=== PATIENT | female | born 1940 | race Hispanic/Latino ===

== ENCOUNTER 2017-08-21 21:39 | Emergency (ER) | payer MEDICARE | END 2017-08-21 23:16 | disposition home or self-care (01) | LOC: EDH 21:39 | DX: H11.32 Conjunctival hemorrhage, left eye (principal); E11.9 Type 2 diabetes mellitus without complications; E78.5 Hyperlipidemia, unspecified; I10 Essential (primary) hypertension; Z79.4 Long term (current) use of insulin ==

== ENCOUNTER → 2017-12-04 | Outpatient (CLI) | payer MEDICARE ==
[~2017-12-04] MED LIST: REGADENOSON 0.4 MG/5 ML PF SYG IVP SCH
== END | disposition home or self-care (01) ==
LOC: SHCH 07:49
PROVIDERS: ATTEND Internal Medicine Cardiovascular Disease
DX: I10 Essential (primary) hypertension (principal); E78.5 Hyperlipidemia, unspecified; R06.02 Shortness of breath
CPT/HCPCS: 78452; 93017; 96374; A9500 ×2; J2785

== ENCOUNTER 2018-04-14 05:44 | Day surgery (SDC) | payer MEDICARE ==
[~2018-04-14] VITALS: Ht 152.4 cm; Wt 59.7 kg
[2018-04-14] VITALS (9 sets, daily range): BP systolic 75–113; BP diastolic 34–49
[~2018-04-14 05:44] MED LIST changes: -REGADENOSON 0.4 MG/5 ML PF SYG IVP SCH; +SODIUM CHLORIDE 0.9% 1000ML 1,000 ML IV ONE
[2018-04-14] MEDS ORDERED: MECL-111 PO (06:58)
[2018-04-14] MEDS ORDERED: INSU100V12 SQ (06:58)
[2018-04-14] MEDS ORDERED: LISI2.5T2 PO (06:58)
[2018-04-14] MEDS ORDERED: BRIM5DRO OP (06:58)
[2018-04-14] MEDS ORDERED: ESOM40CA54 PO (06:58)
[2018-04-14] MEDS ORDERED: ATOR40TA71 PO (06:58)
[2018-04-14] MEDS ORDERED: METF-444 PO (06:58)
[2018-04-14] MEDS ORDERED: ISOS30TA6 PO (06:58)
[2018-04-14] MEDS ORDERED: ERGO500014 PO (06:58)
[2018-04-14] MEDS ORDERED: PROPOFOL 10 MG/ML 20ML VIAL IV ONE ×2 (07:03)
[2018-04-14 07:42] LABS: BASOPHILS % (AUTO) 0.9 % (0.0-5.0); HEMATOCRIT 29.7 % (36-48); LYMPHOCYTES % (AUTO) 30.9 % (21.0-51.0); MEAN CORPUSCULAR HEMOGLOBIN 28.3 pg (27.0-33.0); MEAN CORPUSCULAR HGB CONC 32.8 g/dL (32.0-36.0); MEAN CORPUSCULAR VOLUME 86.3 fL (79-99); MONOCYTES % (AUTO) 6.4 % (3.0-13.0); NEUTROPHILS % (AUTO) 58.8 % (40.0-77.0); PLATELET COUNT (AUTO) 299 K/uL (130-400); RED BLOOD CELL COUNT(AUTO) 3.44 MIL/uL (4.00-5.50); RED CELL DISTRIBUTION WIDTH 14.7 % (11.0-15.5); WHITE BLOOD COUNT (AUTO) 7.3 K/uL (4.8-10.8)
[2018-04-14 08:06] LABS: CREATININE 0.6 mg/dL (0.5-1.5); POTASSIUM 4.3 mmol/L (3.5-5.1)
[2018-04-14 08:12] LABS: ALBUMIN 2.8 g/dL (3.5-5.0); BILIRUBIN,TOTAL 0.6 mg/dL (0.2-1.0); TOTAL PROTEIN, SERUM 6.6 g/dL (6.0-8.3)
== END 2018-04-14 07:45 | disposition home or self-care (01) ==
LOC: ENDO 05:44 → DAH 06:00 → ENDO 07:45
PROVIDERS: ATTEND Internal Medicine Gastroenterology
DX: K29.50 Unspecified chronic gastritis without bleeding (principal); K83.8 Other specified diseases of biliary tract; K80.50 Calculus of bile duct without cholangitis or cholecystitis without obstruction; K86.9 Disease of pancreas, unspecified; I10 Essential (primary) hypertension; E11.9 Type 2 diabetes mellitus without complications; E78.5 Hyperlipidemia, unspecified; M19.90 Unspecified osteoarthritis, unspecified site; K57.30 Diverticulosis of large intestine without perforation or abscess without bleeding; K21.9 Gastro-esophageal reflux disease without esophagitis; K45.8 Other specified abdominal hernia without obstruction or gangrene; Z79.899 Other long term (current) drug therapy; Z79.84 Long term (current) use of oral hypoglycemic drugs; Z90.710 Acquired absence of both cervix and uterus; Z90.49 Acquired absence of other specified parts of digestive tract; Z90.89 Acquired absence of other organs
CPT/HCPCS: 36415; 43259; 80053; 82948 ×2; 85025; 93005; A4606; J2704 ×2; J7030; 43231

== ENCOUNTER 2018-06-18 09:54 | Day surgery (SDC) | payer MEDICARE ==
[~2018-06-18] VITALS: Ht 152.4 cm; Wt 59.8 kg
[2018-06-18] VITALS (14 sets, daily range): BP systolic 100–175; BP diastolic 48–93
[~2018-06-18 09:54] MED LIST changes: +ATOR40TA71 PO; +BRIM5DRO OP; +ERGO500014 PO; +ESOM40CA54 PO; +INDOMETHACIN 50 MG SUPP.RECT RC SCH; +INSU100V12 SQ; +IOHEXOL-350 50ML VIAL IV ONE; +ISOS30TA6 PO; +LISI2.5T2 PO; +MECL-111 PO; +METF-444 PO
[2018-06-18] MEDS ORDERED: DEXTROSE 50%-WATER 50 ML DISP.SYRIN IV ONE ×2 (11:18→14:13)
[2018-06-18] MEDS ORDERED: IOHEXOL-350 50ML VIAL IV ONE (11:30)
--- NOTE | 2018-06-18 11:37 | NUR ---
NURSING UPON ARRIVAL TO UNIT BS CHECKED AND RESULTS 53 PT IS ASYMPTOMATIC. REPORTED RESULTS TO ANESTHESIA AND ORDERS RECD SEE MED SHEET Addendum: 06/18/18 at 1140 by ALY JIMENZE RN Amended: Links added.
[2018-06-18] MEDS ORDERED: NAPROXEN (11:47)
[2018-06-18] MEDS ORDERED: INSLAN SQ (11:47)
[2018-06-18] MEDS ORDERED: GLYCOPYRROLATE 1 MG/5 ML SYRINGE ONE (12:13)
[2018-06-18] MEDS ORDERED: SUCCINYLCHOLINE CHLORIDE 20 MG/ML 10 ML VIAL ONE (12:13)
[2018-06-18] MEDS ORDERED: PROPOFOL 10 MG/ML 20ML VIAL IV ONE (12:14)
[2018-06-18] MEDS ORDERED: ROCURONIUM 10MG/1ML SYR 10 MG/ML ML ONE (12:14)
[2018-06-18] MEDS ORDERED: NEOSTIGMINE 5MG/5ML SYR IV ONE (12:14)
[2018-06-18] MEDS ORDERED: FENTANYL CITRATE PF 50 MCG/1 ML 2ML VIAL ONE (12:14)
[2018-06-18] MEDS ORDERED: ONDANSETRON HCL 4 MG/2 ML VIAL ONE (13:38)
[2018-06-18] MEDS ORDERED: IPRATROPIUM/ALBUTEROL SULFATE 3 ML SOLUTION IH ONE (13:55)
--- NOTE | 2018-06-18 14:18 | NUR ---
RADHA 51, RECHECK 50, LIZBET CANELA NOTIFIED. 1AMP D50 GIVEN SIVP, TOLERATES WELL. Addendum: 06/18/18 at 1420 by ATIF SETHI RN RN Amended: Links added.
== END 2018-06-18 15:35 | disposition home or self-care (01) ==
LOC: DAH 09:54
PROVIDERS: ATTEND Internal Medicine
DX: K80.51 Calculus of bile duct without cholangitis or cholecystitis with obstruction (principal); D64.9 Anemia, unspecified; K29.70 Gastritis, unspecified, without bleeding; K21.9 Gastro-esophageal reflux disease without esophagitis; K45.8 Other specified abdominal hernia without obstruction or gangrene; I10 Essential (primary) hypertension; E11.9 Type 2 diabetes mellitus without complications; E78.5 Hyperlipidemia, unspecified; M19.90 Unspecified osteoarthritis, unspecified site; Z90.710 Acquired absence of both cervix and uterus; Z90.49 Acquired absence of other specified parts of digestive tract; Z98.890 Other specified postprocedural states; Z79.899 Other long term (current) drug therapy
CPT/HCPCS: 36415; 43261; 43264; 43273; 43276; 74330; 82150; 82378; 82948 ×4; 88108; 88305; 88342; 93005; 94640; A4606; C1769; C2625; J0330; J2405; J2704; J2710; J3490; J7030; J7070 ×2; Q9967; 43262; 43274; 43275; J3010

== ENCOUNTER → 2018-07-08 | Outpatient (CLI) | payer OTHER ==
[~2018-07-08] MED LIST changes: -INDOMETHACIN 50 MG SUPP.RECT RC SCH; +INSLAN SQ; -INSU100V12 SQ; -IOHEXOL-350 50ML VIAL IV ONE; -SODIUM CHLORIDE 0.9% 1000ML 1,000 ML IV ONE
== END | disposition home or self-care (01) ==
LOC: OIH 13:38
PROVIDERS: ATTEND Internal Medicine Cardiovascular Disease
DX: Z13.6 Encounter for screening for cardiovascular disorders (principal)
CPT/HCPCS: 75571

== ENCOUNTER 2018-09-22 09:31 | Day surgery (SDC) | payer MEDICARE ==
[~2018-09-22] VITALS: Ht 147.3 cm; Wt 61.3 kg
[2018-09-22] VITALS (15 sets, daily range): BP systolic 103–142; BP diastolic 44–65
[~2018-09-22 09:31] MED LIST changes: +IOHEXOL-350 50ML VIAL IV ONE; +SODIUM CHLORIDE 0.9% 1000ML 1,000 ML IV ONE
[2018-09-22] MEDS ORDERED: INDOMETHACIN 50 MG SUPP.RECT RC SCH (11:15)
[2018-09-22] MEDS ORDERED: PROPOFOL 10 MG/ML 20ML VIAL IV ONE (12:48)
--- NOTE | 2018-09-22 15:30 | NUR ---
PT TOLERATED PROCEDURE WELL, C/O OF MILD THROAT DISCOMFORT, INSTRUCTED TO DRINK WARM LIQUIDS OR COUGH DROPS. INTRUCTED PT NOT TO EAT FOR 6 HOURS , INSTRUCTED PT MAY RESUME LIQUIDS AND FOOD STARTING AT 0830, DAUGHTER AND PT VERBALIZED UNDERSTANDING. POST CARE INSTRUCTIONS GIVEN TO PT, PT ASSISTED TO DRESS AND IN A WHEELCHAIR, DRIVEN HOME BY DAUGHTER.
== END 2018-09-22 15:30 | disposition home or self-care (01) ==
LOC: DAH 09:31 → ENDO 09:31
PROVIDERS: ATTEND Internal Medicine
DX: K83.1 Obstruction of bile duct (principal); E11.9 Type 2 diabetes mellitus without complications; I10 Essential (primary) hypertension; K21.9 Gastro-esophageal reflux disease without esophagitis; Z79.4 Long term (current) use of insulin; Z79.899 Other long term (current) drug therapy; Z79.84 Long term (current) use of oral hypoglycemic drugs; K83.9 Disease of biliary tract, unspecified
CPT/HCPCS: 43261; 43264; 43273; 43275; 74330; 82948 ×2; 88104; 88305 ×2; 88341; 88342; A4606; C1769; J2704; J7030; Q9967; 43277; G9654

== ENCOUNTER 2019-07-08 05:37 | Day surgery (SDC) | payer OTHER, MEDICARE ==
[~2019-07-08] VITALS: Ht 152.4 cm; Wt 59.0 kg
[~2019-07-08 05:37] MED LIST changes: -BRIM5DRO OP; -ERGO500014 PO; -IOHEXOL-350 50ML VIAL IV ONE; -SODIUM CHLORIDE 0.9% 1000ML 1,000 ML IV ONE
[2019-07-08] MEDS ORDERED: SODIUM CHLORIDE 0.9% 1000ML 1,000 ML IV ONE (05:45)
[2019-07-08 06:00] VITALS: BP 135/57
[2019-07-08] MEDS ORDERED: INSU100V12 SQ (06:29)
[2019-07-08] MEDS ORDERED: URSO500T10 PO (06:29)
[2019-07-08] MEDS ORDERED: PROPOFOL 10 MG/ML 20ML VIAL IV ONE ×2 (07:22→07:33)
[2019-07-08] MEDS ORDERED: LIDOCAINE HCL 2% 20ML ONE (07:22)
[2019-07-08] MEDS ORDERED: PHENYLEPHRINE HCL 10 MG/ML 1ML VIAL IV ONE (07:38)
[2019-07-08] MEDS ORDERED: SODIUM CHLORIDE 0.9% 10 ML VIAL ONE (07:38)
[2019-07-08 07:47] VITALS: BP 121/78
[2019-07-08 07:52] VITALS: BP 122/52
[2019-07-08 07:57] VITALS: BP 108/47
== END 2019-07-08 08:30 | disposition home or self-care (01) ==
LOC: DAH 05:37 → ENDO 05:37
PROVIDERS: ATTEND Internal Medicine
DX: K29.50 Unspecified chronic gastritis without bleeding (principal); K44.9 Diaphragmatic hernia without obstruction or gangrene; K31.89 Other diseases of stomach and duodenum; K83.1 Obstruction of bile duct; K45.8 Other specified abdominal hernia without obstruction or gangrene; I10 Essential (primary) hypertension; E11.9 Type 2 diabetes mellitus without complications; K21.9 Gastro-esophageal reflux disease without esophagitis; M19.90 Unspecified osteoarthritis, unspecified site; Z90.49 Acquired absence of other specified parts of digestive tract; Z90.710 Acquired absence of both cervix and uterus; Z79.4 Long term (current) use of insulin; Z79.82 Long term (current) use of aspirin; Z79.899 Other long term (current) drug therapy
CPT/HCPCS: 43239; 82948 ×2; 88305; A4215; A4221; A4222; A4223; A4606; A4620; A4663; J2370; J2704 ×2; J3490; J7030

== ENCOUNTER → 2021-03-21 | Outpatient (CLI) | payer OTHER, MEDICARE ==
[~2021-03-21] MED LIST changes: -INSLAN SQ; +INSU100V12 SQ; -ISOS30TA6 PO; +ISOS30TA92 PO; +LISI2.5T13 PO; -LISI2.5T2 PO; -MECL-111 PO; +MECL-160 PO; +URSO500T10 PO
== END | disposition home or self-care (01) ==
LOC: SHCH 10:02
PROVIDERS: ATTEND Internal Medicine Cardiovascular Disease
DX: I73.9 Peripheral vascular disease, unspecified (principal)
CPT/HCPCS: 93925

== ENCOUNTER → 2022-11-27 | Outpatient (CLI) | payer OTHER, MEDICARE ==
[~2022-11-27] MED LIST changes: +GADOTERATE MEGLUMINE 10 MMOL/20 ML VIAL IV ONE
== END | disposition home or self-care (01) ==
LOC: RAH 07:58
PROVIDERS: ATTEND Internal Medicine Gastroenterology
DX: N28.1 Cyst of kidney, acquired (principal); K42.9 Umbilical hernia without obstruction or gangrene; K83.1 Obstruction of bile duct; R93.2 Abnormal findings on diagnostic imaging of liver and biliary tract; R94.5 Abnormal results of liver function studies; R63.4 Abnormal weight loss
CPT/HCPCS: 74183; A9575